=== PATIENT | male | born 1975 | race Caucasian/White ===

== ENCOUNTER 2020-11-23 06:10 | Day surgery (SDC) | payer OTHER ==
[~2020-11-23 06:10] MED LIST: Acetaminophen 325 MG Tab PO SCH; Lactated Ringers 1,000 ML IV SCH; Lidocaine 1%/Sod Bicarbonate in NS 8.4% 1 ML Syringe IDERM PRN; Midazolam 1 MG/ML 2 ML SDV ONE; Pregabalin 25 MG Cap PO SCH; Propofol 200 MG/20 ML SDV ONE; Sodium Chloride 0.9% 10 ML Syringe FLUSH PRN; fentaNYL 100 MCG/2 ML SDV ONE; oxyCODONE ER 10 MG TAB.ER PO SCH
[2020-11-23] MEDS ORDERED: ceFAZolin 1 GM Vial ONE (06:11)
--- NOTE | 2020-11-23 06:25 | PCM.PREANE ---
Preanesthetic Assessment - Procedure Proposed Procedure: Left total knee arthroplasty with possible hardware removal and right knee steroid injection - Anesthesia/Transfusion/Family Hx Anesthesia History: Prior Anesthesia Without Reaction Family History of Anesthesia Reaction: No Transfusion History: No Prior Transfusion(s) Intubation History: Unknown - Review of Systems General: No Symptoms Pulmonary: No Symptoms Cardiovascular: No Symptoms Gastrointestinal: No Symptoms Neurological: No Symptoms Other: Reports: None - Physical Assessment NPO Status Date: 11/22/20 NPO Status Time: 23:15 Vital Signs: BP 139/88 HR 77 RR 16 100% 97.0 Height: 1.78 m Weight: 85 kg ASA Class: 2 Mental Status: Alert & Oriented x3 Airway Class: Mallampati = 3 Dentition: Reports: Normal Dentition Thyro-Mental Finger Breadths: 3 Mouth Opening Finger Breadths: 3 ROM/Head Extension: Full Lungs: Clear to Auscultation, Normal Respiratory Effort Cardiovascular: Regular Rate, Regular Rhythm, No Murmurs Other: No murmurs heard on exam - Lab Values: Labs reviewed and okay to proceed with procedure - Imaging/EKG Impressions: 11/07/20 EKG NSR HR 76 - Allergies Allergies/Adverse Reactions: Allergies Allergy/AdvReac Type Severity Reaction Status Date / Time No Known Drug Allergies Allergy Other Verified 11/22/20 12:43 - Blood Blood Available: No Product(s) Available: None - Anesthesia Plan Pre-Op Medication Ordered: None - Acknowledgements Anesthesia Type Planned: Spinal Pt an Appropriate Candidate for the Planned Anesthesia: Yes Alternatives and Risks of Anesthesia Discussed w Pt/Guardian: Yes Pt/Guardian Understands and Agrees with Anesthesia Plan: Yes PreAnesthesia Questionnaire HEENT History: Reports: Impaired Vision, Other (See Below) Other HEENT History: wears glasses/contacts Cardiovascular History: Reports: Heart Murmur Other Cardiovascular History: murmur heard in high school, has had tests run with no concerns; history of having fast heart rate- patient wore holter monitor multiple times, no significant findings per patient (last time 5 years ago), patient has not had an episode for 1.5 years. Patient stated that these episodes last 5 minutes at the longest and will spontaneously resolve on own or patient will bare down and will resolve it. METS greater than 4. Respiratory History: Reports: None Gastrointestinal History: Reports: None Genitourinary History: Reports: None Other Genitourinary History: Erectile dysfunction STRETCHER HELPER History: Reports: None Musculoskeletal History: Reports: None, Gout Neurological History: Reports: None Psychiatric History: Reports: None Endocrine/Metabolic History: Reports: None Hematologic History: Reports: None Immunologic History: Reports: None Oncologic (Cancer) History: Reports: None Dermatologic History: Reports: Eczema, Other (See Below) Other Dermatologic History: contact dermatitis - Past Surgical History Cardiovascular Surgical History: Reports: None Respiratory Surgical History: Reports: None GI Surgical History: Reports: None Female Surgical History: Reports: None Male Surgical History: Reports: None Endocrine Surgical History: Reports: None Neurological Surgical History: Reports: None Musculoskeletal Surgical History: Reports: Arthroscopic Knee Other Musculoskeletal Surgeries/Procedures:: left ACL Oncologic Surgical History: Reports: None Dermatological Surgical History: Reports: None - Past Imaging History Past Imaging History: Reports: Holter Monitor (Patient had this done 5 years ago - per patient report no significant findings, patient stating that he had short episodes of a "fast heart rate" but would spontaneously decrease to normal rate or patient would bare down and would bring heart rate back down) - SUBSTANCE USE Tobacco Use Status *Q: Never Tobacco User Tobacco Use Within Last Twelve Months: No Second Hand Smoke Exposure: No Days Per Week of Alcohol Use: 1 Number of Drinks Per Day: 4 Total Drinks Per Week: 4 Date of Last Drink: 11/20/20 Time of Last Drink: 18:00 Recreational Drug Use History: No - HOME MEDS Home Medications: Home Meds Ascorbic Acid [Vitamin C] 1,000 mg PO DAILY 11/22/20 [History] Aspirin [Aspirin EC] 325 mg PO BID #84 tab 11/22/20 [Rx] Cholecalciferol (Vitamin D3) [Vitamin D3] 5,000 unit PO DAILY 11/22/20 [History] Cyclobenzaprine [Flexeril] 10 mg PO BID PRN #20 tab 11/22/20 [Rx] Multivitamin [Multi-Day Vitamins] 1 tab PO DAILY 11/22/20 [History] oxyCODONE 5 - 10 mg PO Q4H PRN #40 tab 11/22/20 [Rx] - CURRENT (IN HOUSE) MEDS Current Meds: Current Medications Acetaminophen (Acetaminophen 325 Mg Tab) 975 mg PO ONETIME HARMONY Stop: 11/23/20 16:00 Morphine Sulfate 8 mg/Epinephrine HCl 0.3 mg/Cefuroxime Sodium 750 mg/Ketorolac Tromethamine 30 mg/Sodium Chloride 7.9 ml 0 mg .XX ASDIRECTED PRN PRN Reason: Pain Stop: 11/23/20 18:00 Lactated Ringer's (Ringers, Lactated) 1,000 mls @ 125 mls/hr IV ASDIRECTED HARMONY Stop: 11/23/20 23:00 Lidocaine/Sodium Bicarbonate (Lidocaine 1%/Sod Bicarbonate In Ns 8.4% 1 Ml Syringe) 0.25 ml IDERM ONETIME PRN PRN Reason: Prior to IV Start Stop: 11/23/20 23:00 Oxycodone HCl (Oxycodone Er 10 Mg Tab.Er) 10 mg PO ONETIME HARMONY Stop: 11/23/20 16:00 Pregabalin (Pregabalin 25 Mg Cap) 50 mg PO ONETIME HARMONY Stop: 11/23/20 16:00 Sodium Chloride (Sodium Chloride 0.9% 10 Ml Syringe) 10 ml FLUSH ASDIRECTED PRN PRN Reason: Keep Vein Open Stop: 11/23/20 23:00 Discontinued Medications Cefazolin Sodium (Cefazolin 1 Gm Vial) Confirm Administered Dose 2 gm .ROUTE .STK-MED ONE Stop: 11/23/20 06:12 Fentanyl (Fentanyl 100 Mcg/2 Ml Sdv) Confirm Administered Dose 100 mcg .ROUTE .STK-MED ONE Stop: 11/23/20 06:11 Midazolam HCl (Midazolam 1 Mg/Ml 2 Ml Sdv) Confirm Administered Dose 2 mg .ROUTE .STK-MED ONE Stop: 11/23/20 06:11 Propofol (Propofol 200 Mg/20 Ml Sdv) Confirm Administered Dose 400 mg .ROUTE .STK-MED ONE Stop: 11/23/20 06:09 Tranexamic Acid (Tranexamic Acid 1,000 Mg/10 Ml Amp) Confirm Administered Dose 1,000 mg .ROUTE .STK-MED ONE Stop: 11/23/20 06:14 Vancomycin HCl (Vancomycin 1 Gm Sdv) Confirm Administered Dose 1 gm .ROUTE .STK- MED ONE Stop: 11/23/20 06:14
[2020-11-23] MEDS ORDERED: EPINEPHrine 1 MG/ML SDV ONE (06:51)
[2020-11-23] MEDS ORDERED: Ropivacaine 0.5% 5 MG/ML 30 ML SDV ONE (06:52)
[2020-11-23] MEDS ORDERED: Lactated Ringers 1,000 ML ONE (07:46)
[2020-11-23] MEDS: Morphine 8 MG, EPINEPHrine 0.3 MG, Cefuroxime 750 MG, Ketorolac 30 MG, Sodium Chloride ... PRN ×10 (07:51→08:30)
[2020-11-23] MEDS: Vancomycin 1 GM SDV ONE ×2 (07:52→08:39)
[2020-11-23] MEDS ORDERED: Propofol 200 MG/20 ML SDV ONE ×3 (07:52→08:42)
[2020-11-23] MEDS: Bupivacaine 0.25% 10 ML SDV ONE ×2 (07:53→08:56)
[2020-11-23] MEDS: Triamcinolone Acetonide 40 MG/ML 1 ML SDV ONE ×2 (07:53→08:56)
[2020-11-23] MEDS ORDERED: fentaNYL 100 MCG/2 ML SDV IVPUSH PRN (09:06)
[2020-11-23] MEDS ORDERED: HYDROmorphone 0.5 MG/0.5 ML Syringe IVPUSH PRN (09:06)
[2020-11-23] MEDS ORDERED: Ondansetron 4 MG/2 ML SDV IVPUSH PRN (09:06)
--- NOTE | 2020-11-23 09:08 | PCM.POSTAN ---
POST ANESTHESIA ASSESSMENT - MENTAL STATUS Mental Status: Alert, Oriented - VITAL SIGNS Vital Signs: Last Vital Signs Temp 97.5 F 11/23/20 09:01 Pulse 77 11/23/20 06:08 Resp 16 11/23/20 09:01 BP 139/88 11/23/20 06:08 Pulse Ox 98 11/23/20 09:01 - RESPIRATORY Respiratory Status: Respiratory Rate WNL, Airway Patent, O2 Saturation Stable - CARDIOVASCULAR CV Status: Pulse Rate WNL, Blood Pressure Stable - GASTROINTESTINAL GI Status: No Symptoms - PAIN Pain Score: 3 - POST OP HYDRATION Hydration Status: Adequate & Stable
--- NOTE | 2020-11-23 09:29 | PCM.SN.2 ---
- Free Text/Narrative Note: Left selective femoral nerve block at the adductor canal for post-procedure pain control under US guidance requested by Dr. Tyler. Time Out: 914 Start: 916 End: 920 Chart reviewed. Consent signed. Questions answered. Appropriate monitors applied. Time out performed. Left mid-shaft femur identified with ultrasound, scanning medially of femur, the femoral artery in the adductor canal visualized, and the femoral nerve located laterally to the artery. The skin was prepped lateral to the ultrasound probe with chlorahexadine times two. The 21ga 4 insulated block needle was inserted under direct ultrasound guidance into the adductor canal. 20 mL of 0.5% ropivacaine with 1:200,000 epinephrine was injected circumferentially around the nerve with intermittent negative aspiration noted. Patient tolerated the procedure well. Sterile technique noted along with sterile gloves, mask, and sterile probe cover. See picture on progress note and vital signs on nurses notes. Block completed in PACU. Chica Calvo, MRI SUPERVISOR
[2020-11-23] MEDS ORDERED: oxyCODONE 5 MG Tab PO PRN (09:36)
[2020-11-23] MEDS ORDERED: Cyclobenzaprine 10 MG Tab PO ONE (09:37)
--- NOTE | 2020-11-23 10:29 | CR ---
Left knee: AP and lateral views of the left knee were obtained. Comparison: Prior CT left knee exam of 11/09/20. Knee prosthesis is seen. Patellar prosthesis also noted. Components are aligned. Old screws are noted from previous ACL repair. Underlying bony structures show nothing acute. Soft tissue air is noted from the surgical procedure. Impression: 1. Satisfactory post-op radiographic appearance of recently placed left knee prostheses. Diagnostic code #2
--- NOTE | 2020-11-23 10:49 | PCM48HPAN ---
Post Anesthesia Note - EVALUATION WITHIN 48HRS OF ANESTHETIC Vital Signs in Normal Range: Yes Patient Participated in Evaluation: Yes Respiratory Function Stable: Yes Airway Patent: Yes Cardiovascular Function Stable: Yes Hydration Status Stable: Yes Pain Control Satisfactory: Yes Nausea and Vomiting Control Satisfactory: Yes Mental Status Recovered: Yes Vital Signs: Last Vital Signs Temp 97.5 F 11/23/20 09:50 Pulse 80 11/23/20 10:30 Resp 16 11/23/20 10:30 BP 120/87 11/23/20 10:30 Pulse Ox 97 11/23/20 10:30
[2020-11-23 14:09] VITALS: BP 127/80; PULSE 71
--- NOTE | 2020-12-05 07:32 | PCM.OPNOTE ---
- General Post-Op/Procedure Note Date of Surgery/Procedure: 11/23/20 Operative Procedure(s): left total knee arthroplasty with silvano andra robotics assist and right knee steroid injection Pre Op Diagnosis: bilateral knee osteoarthrosis Post-Op Diagnosis: Same Anesthesia Technique: Local, MAC, Spinal Primary Surgeon: Arik Tyler Anesthesia Provider: Chica Calvo Auto Body Builder Apprentice: Alison Huitron Auto Body Builder Apprentice: Macy Osman EBL in mLs: 200 Complications: None Condition: Good Free Text/Narrative:: 09/20 9mm 38x11
--- NOTE | 2020-12-05 08:09 | OR ---
DATE OF OPERATION: 11/23/2020 SURGEON: Arik Tyler MD OPERATION PERFORMED: Left total knee arthroplasty with Lead Narinder robotic assist and right knee steroid injection. PREOPERATIVE DIAGNOSIS: Bilateral knee osteoarthrosis. POSTOPERATIVE DIAGNOSIS: Bilateral knee osteoarthrosis. ANESTHESIA: Local MAC with spinal. ANESTHESIA PROVIDER: Janak Nolan. ASSISTANTS: Alison Huitron PA-C; and Macy Osman LPN. ESTIMATED BLOOD LOSS: 200 mL. COMPLICATIONS: None. CONDITION: Stable. IMPLANTS: 1. Kay size 5 press-fit CR femur. 2. Lead size 5 press-fit tibial baseplate. 3. Kay size 5 9 mm CS polyethylene insert. 4. Lead size 38 x 11 mm press-fit asymmetric patella. DESCRIPTION OF PROCEDURE: The patient was identified in the preoperative holding area. Proper site was marked and identified by surgeon. The patient was taken back to the operative theater, where after adequate anesthesia, the patient's left lower extremity had a nonsterile tourniquet applied. It was then sterilely prepped and draped in the usual sterile fashion. OR time-out was performed. The patient received 2 g IV Ancef. At this time, left lower extremity was exsanguinated and tourniquet was then insufflated to 250 mmHg. Standard anterior incision was made. Medial parapatellar arthrotomy was created. Deep fibers of the MCL were raised and anterior fat pad was resected. Attention was turned to the patella. Patella measured a 26 and was resected to a 14 for a 38 x 11 mm patella. Drill holes were then drilled and found to have adequate purchase. At this time, attention was turned to the femur. Two 4.0 Schanz pins were placed intra-incisionally in the femur for the Kay Narinder robotic array. Two more were placed in the tibia 3 fingerbreadths below the tibial tubercle with a Kay Narinder robotic array. At this time, checkpoints were placed in the femur and the tibia. Hip center of rotation was obtained. Medial and lateral malleoli were marked. The femoral and tibial checkpoints were then obtained. 40 points were then obtained at both the femur and the tibia with the Kay Narinder robotic array plan. The patient's knee was brought into full extension. Varus valgus stresses were applied as well as in 90 degrees of flexion. Kay Narinder robotic plan for 19 mm gaps was then undertaken for this patient with rotation and varus. At this time, a straight saw blade was brought in with a [employer] robotic arm. The tibial cut, posterior femoral cut, and anterior femoral cut and anterior chamfer cuts were then completed. Saw blade was then switched and the distal femoral and posterior chamfer cuts were completed and found to be adequate. All bony fragments were removed. Medial and lateral meniscus were resected. Posterior osteophytes were removed. The patient's previous hardware was not found during the procedure, so we left it in place. At this time, trial implants were placed on the tibia and the femur and a 9 mm trial spacer was placed. The patient's knee was brought into full extension and flexion. The patient had full extension and flexion. No signs of liftoff and no varus valgus instability at this time. Femoral drill holes were drilled. Tibia was stamped and drilled into proper rotation. All trial implants were then removed. A size 5 press-fit tibial baseplate was impacted into place. Size 5 press-fit femur was impacted into place. 9 mm CS polyethylene spacer was impacted into place. The patient's knee was brought into full extension and a 38 x 11 mm patella was press-fit into place. Tourniquet was deflated. Bleeders were cauterized. 1 L of pulse lavage irrigation with Ancef was irrigated through the wound along with 400 mL of IrriSept irrigation. Periarticular injection was completed. Topical tranexamic acid and vancomycin powder were applied. A #2 barbed suture was used for closure of the medial parapatellar arthrotomy. 2-0 Vicryl and Stratafix were used for subcutaneous closure, and Prineo was used for skin closure. The patient had a sterile soft dressing applied. After this was completed and under sterile technique, 2 mL of 40 mg Kenalog and 4 mL of 0.25% Marcaine were injected to the patient's right knee. The patient tolerated all procedures well and was sent to the PACU in stable condition. ANTHONY /[id number]
== END 2020-11-23 12:22 | disposition home or self-care (01) ==
LOC: JD.SDS 06:10
PROVIDERS: ATTEND Orthopaedic Surgery
DX: M17.0 Bilateral primary osteoarthritis of knee (principal); Z79.899 Other long term (current) drug therapy; Z98.890 Other specified postprocedural states; Z79.82 Long term (current) use of aspirin
CPT/HCPCS: 20610; 27447; 73560; 97116; 97161; A9270; C1713; C1776; J0171; J0690; J0697; J1885; J2250; J2270; J2704; J2795; J3010; J3301; J3370; J3490; J7120; 01402; 64450; 76942; 97140-GP

== ENCOUNTER 2021-03-02 21:36 | Emergency (ER) | payer OTHER ==
[2021-03-02] MEDS ORDERED: Diphtheria,Pertussis(Acell),Tetanus Vaccine 0.5 ML Syringe IM ONE (21:50)
[2021-03-02] MEDS ORDERED: Lidocaine 1% 10 ML MDV INJECT ONE (21:50)
[2021-03-02 21:55] VITALS: BP 137/93; PULSE 82
--- NOTE | 2021-03-02 22:00 | EDM.PDOC ---
ED HPI GENERAL MEDICAL PROBLEM - General Chief Complaint: Laceration Stated Complaint: HAND LAC Time Seen by Provider: 03/02/21 21:49 Source of Information: Reports: Patient, RN Notes Reviewed History Limitations: Reports: No Limitations - History of Present Illness INITIAL COMMENTS - FREE TEXT/NARRATIVE: Patient is a 45-year-old male presenting to the emergency department with complaints of laceration to his left palm. States he lacerated the area with a knife. He is unsure when his last tetanus vaccination was. He has full use of his left hand. Treatments INCLUSION SPECIALIST: Reports: Dressing(s) - Related Data Allergies Allergy/AdvReac Type Severity Reaction Status Date / Time No Known Drug Allergies Allergy Other Verified 03/02/21 21:55 Home Meds: Home Meds Ascorbic Acid [Vitamin C] 1,000 mg PO DAILY 11/22/20 [History] Cholecalciferol (Vitamin D3) [Vitamin D3] 5,000 unit PO DAILY 11/22/20 [History] Multivitamin [Multi-Day Vitamins] 1 tab PO DAILY 11/22/20 [History] Past Medical History HEENT History: Reports: Impaired Vision, Other (See Below) Other HEENT History: wears glasses/contacts Cardiovascular History: Reports: Heart Murmur Other Cardiovascular History: murmur heard in high school, has had tests run with no concerns; history of having fast heart rate- patient wore holter monitor multiple times, no significant findings per patient (last time 5 years ago), patient has not had an episode for 1.5 years. Patient stated that these episodes last 5 minutes at the longest and will spontaneously resolve on own or patient will bare down and will resolve it. METS greater than 4. Respiratory History: Reports: None Gastrointestinal History: Reports: None Genitourinary History: Reports: None Other Genitourinary History: Erectile dysfunction INTERNATIONAL MARKETING SPECIALIST History: Reports: None Musculoskeletal History: Reports: None, Gout Neurological History: Reports: None Psychiatric History: Reports: None Endocrine/Metabolic History: Reports: None Hematologic History: Reports: None Immunologic History: Reports: None Oncologic (Cancer) History: Reports: None Dermatologic History: Reports: Eczema, Other (See Below) Other Dermatologic History: contact dermatitis - Past Surgical History Cardiovascular Surgical History: Reports: None Respiratory Surgical History: Reports: None GI Surgical History: Reports: None Male Surgical History: Reports: None Endocrine Surgical History: Reports: None Neurological Surgical History: Reports: None Musculoskeletal Surgical History: Reports: Arthroscopic Knee Other Musculoskeletal Surgeries/Procedures:: left ACL Oncologic Surgical History: Reports: None Dermatological Surgical History: Reports: None - Past Imaging History Past Imaging History: Reports: Holter Monitor (Patient had this done 5 years ago - per patient report no significant findings, patient stating that he had short episodes of a "fast heart rate" but would spontaneously decrease to normal rate or patient would bare down and would bring heart rate back down) Social & Family History - Family History Family Medical History: No Pertinent Family History - Tobacco Use Tobacco Use Status *Q: Never Tobacco User - Caffeine Use Caffeine Use: Reports: Coffee - Recreational Drug Use Recreational Drug Use: No ED ROS GENERAL - Review of Systems Review Of Systems: Comprehensive ROS is negative, except as noted in HPI. ED EXAM, SKIN/RASH Exam: See Below General Appearance: Alert, WD/WN, No Apparent Distress Respiratory/Chest: No Respiratory Distress, Lungs Clear, Normal Breath Sounds, No Accessory Muscle Use, Chest Non-Tender Cardiovascular: Normal Peripheral Pulses, Regular Rate, Rhythm, No Edema, No Gallop, No JVD, No Murmur, No Rub Extremities: Other (1.5 cm nongaping laceration to the left palm. No active bleeding.) Neurological: Alert, Oriented, CN II-XII Intact, Normal Cognition, Normal Gait, Normal Reflexes, No Motor/Sensory Deficits Psychiatric: Normal Affect, Normal Mood ED SKIN PROCEDURES - Laceration/Wound Repair Left Ventral Hand Appearance: Subcutaneous Distal NVT: Neuro & Vascular Intact, No Tendon Injury Anesthetic Type: Local Local Anesthesia - Lidocaine (Xylocaine): 1% Plain Local Anesthetic Volume: 1cc Skin Prep: Chlorhexidine (Hibiciens), Providone-Iodine (Betadine), Saline Exploration/Debridement/Repair: Wound Explored, In a Bloodless Field, No Foreign Material Found Closed with: Sutures Lac/Wound length In cm: 1.5 Suture Size: 5-0 # of Sutures: 5 Suture Type: Nylon Sterile Dressing Applied: Nurse Tetanus Status Addressed: Yes Complications: No Course - Vital Signs Last Recorded V/S: Last Vital Signs Temp 96.6 F L 03/02/21 21:50 Pulse 82 03/02/21 21:50 Resp 16 03/02/21 21:50 BP 137/93 H 03/02/21 21:50 Pulse Ox 97 03/02/21 21:50 - Orders/Labs/Meds Meds: Medications Discontinued Medications Generic Name Dose Route Start Last Admin Trade Name Fausto PRN Reason Stop Dose Admin Diphtheria/Tetanus/Acell Pertussis 0.5 ml 03/02/21 21:50 03/02/21 22:35 Diphtheria,Pertussis(Acell),Tetanus Vaccine 0.5 Ml Syringe IM 03/02/21 21:51 0.5 ml .ONCE ONE Administration Lidocaine HCl 10 ml 03/02/21 21:50 03/02/21 22:35 Lidocaine 1% 10 Ml Mdv INJECT 03/02/21 21:51 10 ml ONETIME ONE Administration Departure - Departure Time of Disposition: 22:20 Disposition: Home, Self-Care 01 Condition: Good Clinical Impression: Laceration - Discharge Information *PRESCRIPTION DRUG MONITORING PROGRAM REVIEWED*: No *COPY OF PRESCRIPTION DRUG MONITORING REPORT IN PATIENT YURI: No Instructions: Laceration Care, Adult Referrals: Calin Keating MD [Primary Care Provider] - Forms: ED Department Discharge Additional Instructions: You were seen in the emergency department today for a laceration to your left hand. The wound was cleansed and closed with 5 sutures. These should stay intact for 7 days. After that time they may be removed in the clinic by a nurse. Keep the wound clean and dry. Wash with normal soap and water twice daily. Do not submerge the wound in water. Watch for signs of infection including increased redness, swelling, or purulent drainage. If these should occur, you should be seen either in the clinic or in the emergency department as antibiotic treatment may be needed. Return to the ER as needed. Sepsis Event Note (ED) - Evaluation Sepsis Screening Result: No Definite Risk
== END 2021-03-02 22:25 | disposition home or self-care (01) ==
LOC: JD.ED 21:36
DX: S61.412A Laceration without foreign body of left hand, initial encounter (principal); Z23 Encounter for immunization; W26.0XXA Contact with knife, initial encounter
CPT/HCPCS: 12001; 90471; 90715; 99282-25